=== PATIENT | male | born 1980 | race Caucasian/White ===

== ENCOUNTER → 2021-06-25 | Outpatient (CLI) | payer BC | LOC: CARD 11:15 | PROVIDERS: ATTEND Nurse Practitioner Family | DX: R00.2 Palpitations (principal) | CPT/HCPCS: 93005 ==

== ENCOUNTER 2021-07-07 10:33 | Outpatient (CLI) | payer BC | END 2021-07-07 10:45 | LOC: SLEEP 10:33 | PROVIDERS: ATTEND Nurse Practitioner Family | DX: Z13.9 Encounter for screening, unspecified (principal); I12.9 Hypertensive chronic kidney disease with stage 1 through stage 4 chronic kidney disease, or unspecified chronic kidney disease; N18.9 Chronic kidney disease, unspecified; E66.9 Obesity, unspecified; R00.2 Palpitations; R06.83 Snoring | CPT/HCPCS: G0399 ==